=== PATIENT | male | born 1990 | race Caucasian/White ===

== ENCOUNTER 2018-10-26 16:39 | Emergency (ER) | payer SELFPAY | END 2018-10-26 20:09 | disposition home or self-care (01) | LOC: FTE 20:09 | DX: S99.911A Unspecified injury of right ankle, initial encounter (principal); S99.912A Unspecified injury of left ankle, initial encounter; F17.210 Nicotine dependence, cigarettes, uncomplicated; X50.1XXA Overexertion from prolonged static or awkward postures, initial encounter; Y92.9 Unspecified place or not applicable | CPT/HCPCS: 73600; 73600-LT; 73610-RT; 99284-25 ==